=== PATIENT | female | born 1960 | race Caucasian/White ===

== ENCOUNTER 2016-12-10 02:27 | Emergency (ER) | payer BC ==
[2016-12-10 02:39] VITALS: BP 159/80
[2016-12-10] MEDS ORDERED: valACYclovir 1,000 MG Tab PO STA (03:02)
[2016-12-10] MEDS ORDERED: valACYclovir 500 MG Tab ONE (03:14)
[2016-12-10] MEDS ORDERED: valACYclovir 500 MG Tab PO ONE (03:15)
--- NOTE | 2016-12-10 03:20 | EDM.PDOC ---
ED HPI GENERAL MEDICAL PROBLEM - General Chief Complaint: Lower Extremity Injury/Pain Stated Complaint: LEFT LEG PAIN Time Seen by Provider: 12/10/16 02:33 Source of Information: Reports: Patient, Family (), RN Notes Reviewed History Limitations: Reports: No Limitations - History of Present Illness INITIAL COMMENTS - FREE TEXT/NARRATIVE: The patient states that she was diagnosed with pancreatic cancer 07/21/2016, and is currently on chemotherapy. She states that she developed a rash on the medial aspect of her left thigh, along with pain extending from her left knee up to her left hip, along the course of the rash, this past 12/06/2016. She was seen by her Oncologist , Dr. Graham, at the [facility] on 12/08/2016. An x-ray of her left knee was obtained. No prescriptions were given. The patient was told to take her previously-prescribed tramadol, however, the patient states that that is not helping, and has only increased her nausea. She now presents because her pain is unbearable. The patient confirms that she had chickenpox as a child. The patient's PCP is Dr. Zoey Concepcion. Left Knee Pain Score (Numeric/FACES): 10 - Related Data Allergies Allergy/AdvReac Type Severity Reaction Status Date / Time No Known Allergies Allergy Verified 12/10/16 02:40 Home Meds: Home Meds Insulin Detemir [Levemir] 12 unit SUBCUT QAM 07/17/16 [History] Insulin Detemir [Levemir] 15 units SUBCUT BEDTIME 07/17/16 [History] Lisinopril [Zestril] 5 mg PO DAILY 07/17/16 [History] valACYclovir [Valtrex] 1 tab PO DAILY PRN 07/17/16 [History] Cholestyramine/Aspartame [Prevalite] 4 gm PO DAILY #10 packet 07/18/16 [Rx] Ondansetron [Zofran ODT] 4 mg PO Q6H #20 tab.dis 07/18/16 [Rx] valACYclovir [Valtrex] 1,000 mg PO Q8H #21 tablet 12/10/16 [Rx] Past Medical History HEENT History: Reports: Impaired Vision Endocrine/Metabolic History: Reports: Diabetes, Type II Oncologic (Cancer) History: Reports: Pancreatic (Dx'd 07/21/2016) - Infectious Disease History Infectious Disease History: Reports: Chicken Pox, Influenza - Past Surgical History HEENT Surgical History: Reports: JOE Cardiovascular Surgical History: Reports: Other (See Below) (Left Port-A-Cath) GI Surgical History: Reports: Other (See Below) (Biliary stent. Exploratory laparoscopy.) Social & Family History - Family History Family Medical History: Noncontributory Endocrine/Metabolic: Reports: Diabetes, type II - Tobacco Use Smoking Status *Q: Never Smoker - Caffeine Use Caffeine Use: Reports: Soda - Alcohol Use Alcohol Use History: Yes Alcohol Use Frequency: Socially - Recreational Drug Use Recreational Drug Use: No - Living Situation & Occupation Living situation: Reports: , with Spouse Occupation: Disabled Review of Systems - Review of Systems Review Of Systems: See Below Constitutional: Reports: No Symptoms Eyes: Reports: No Symptoms Ears: Reports: No Symptoms Nose: Reports: No Symptoms Mouth/Throat: Reports: No Symptoms Respiratory: Reports: No Symptoms Cardiovascular: Reports: No Symptoms GI/Abdominal: Reports: Nausea Genitourinary: Reports: No Symptoms Musculoskeletal: Reports: No Symptoms Skin: Reports: No Symptoms Neurological: Reports: No Symptoms Psychiatric: Reports: No Symptoms Trauma Exam - Physical Exam Exam: See Below Exam Limited By: No Limitations General Appearance: Reports: Alert, WD/WN, No Apparent Distress Head: Reports: Normocephalic Extremities: No Evidence of Injury, Normal Range of Motion, No Pedal Edema Neurologic: Reports: No Motor/Sensory Deficits, Alert Skin: Reports: Normal Color, Warm/Dry, Rash (Vesicular rash extending along the postero-medial aspect of the left thigh, with a few lesions on the anterior distal left thigh, consistent with L3/L4 dermatome distribution) Course - Vital Signs Last Recorded V/S: Last Vital Signs Temp 36.9 C 12/10/16 02:33 Pulse 88 12/10/16 02:33 Resp 18 12/10/16 02:33 BP 159/80 H 12/10/16 02:33 Pulse Ox 99 12/10/16 02:33 - Orders/Labs/Meds Meds: Medications Discontinued Medications Generic Name Dose Route Start Last Admin Trade Name Freq PRN Reason Stop Dose Admin Valacyclovir HCl 1,000 mg 12/10/16 03:02 Valtrex PO 12/10/16 03:03 ONETIME STA Valacyclovir HCl Confirm 12/10/16 03:14 Valtrex Administered 12/10/16 03:15 Dose 1,000 mg .ROUTE .STK-MED ONE Valacyclovir HCl 1,000 mg 12/10/16 03:15 12/10/16 03:16 Valtrex PO 12/10/16 03:16 1,000 mg ONETIME ONE Administration - Re-Assessments/Exams Free Text/Narrative Re-Assessment/Exam: 12/10/16 03:15 The patient has shingles to her left L3/L4 dermatomes. Unfortunately, she is presenting > 72 hours after the onset of her symptoms, however, current guidelines recommend treatment with an antiviral agent, such as Valtrex, in patients on chemotherapy, or who his lesions have not crusted over, such as this patient. The patient has therefore been given her first dose of Valtrex 1 g, and I will e-prescribe a 7 day course. Current guidelines recommend AGAINST prescribing gabapentin, tricyclic antidepressants, or glucocorticoids to treat the neuralgia, unless symptoms persist for greater than 4 months. Departure - Departure Time of Disposition: :17 Disposition: Home, Self-Care 01 Condition: fair Clinical Impression: Shingles - Discharge Information Prescriptions: valACYclovir [Valtrex] 1,000 mg PO Q8H #21 tablet Referrals: Taylor Graham MD [Primary Care Provider] - Zoey Concepcion MD [Physician] - Forms: ED Department Discharge Additional Instructions: You were seen in the emergency room for left thigh pain and rash. On examination, you have shingles. You have been started on the anti-viral medicine Valtrex. Take one tablet every 8 hours, as prescribed. Finish the entire prescription unless told otherwise by a doctor. You may take Tylenol and/or ibuprofen along with your previously prescribed tramadol, as needed for pain. Followup with Dr. Concepcion or Dr. Graham as needed. If any other problems, please do not hesitate to return to the ER.
== END 2016-12-10 03:40 | disposition home or self-care (01) ==
LOC: JD.ED 02:27
DX: B02.9 Zoster without complications (principal); H54.7 Unspecified visual loss; E11.9 Type 2 diabetes mellitus without complications; Z79.4 Long term (current) use of insulin; Z79.899 Other long term (current) drug therapy
CPT/HCPCS: 99283; A9270